=== PATIENT | male | born 1985 | race Caucasian/White ===

== ENCOUNTER 2018-02-24 18:38 | Emergency (ER) | payer OTHER ==
[2018-02-24 18:47] VITALS: BP 135/73
[2018-02-24] MEDS ORDERED: LIDOCAINE PATCH 5% TOP STA (19:08)
[2018-02-24] MEDS ORDERED: MELOXICAM 7.5 MG TABLET PO STA (19:08)
--- NOTE | 2018-02-24 19:14 | ED Physician Documentation ---
History of Present Illness - Stated complaint Stated Complaint: LT SIDE RIB PX - Chief complaint Chief Complaint: General - History obtained from History obtained from: Patient, Family - History of Present Illness Timing: How many days ago (5) Pain level max: 7 Pain level now: 2 Quality: aching pain, sharp with cough. Improved by: rest Worsened by: movement, palpation - Additonal information Additional information: L sided rib pain s/p diving for a softball a few days ago. Still having L rib pain Review of Systems Nose: denies: Rhinorrhea / runny nose, Congestion Throat: denies: Sore throat Cardiac: denies: Palpitations Respiratory: denies: Dyspnea, Hemoptysis, Wheezing Skin: denies: Rash Musculoskeletal: denies: Neck pain, Back pain Neurologic: denies: Headache PD PAST MEDICAL HISTORY - Past Medical History Past Medical History: No - Past Surgical History Past Surgical History: No - Present Medications Home Medications: Ambulatory Orders Medication Instructions Recorded Confirmed Docusate Sodium 100Mg Capsule 100 mg PO BID #30 capsule 06/03/14 [Colace] Nitroglycerin [Rectiv] 1 inch RC BID #1 oint...g. 06/03/14 Polyethylene Glycol 3350 [Miralax] 17 gm PO DAILY PRN #1 bottle 06/03/14 Lidocaine Patch 5% [Lidoderm Patch] 1 patch TOP DAILY PRN #10 patch 02/24/18 Meloxicam [Mobic] 15 mg PO DAILY PRN #20 tablet 02/24/18 - Allergies Allergies/Adverse Reactions: Allergies Allergy/AdvReac Type Severity Reaction Status Date / Time No Known Drug Allergies Allergy Verified 06/03/14 19:54 - Living Situation Living Situation: reports: With family Living Arrangement: reports: At home - Social History Does the pt smoke?: No Smoking Status: Never smoker Does the pt drink ETOH?: No Does the pt have substance abuse?: No - Immunizations Immunizations are current?: Yes PD ED PE NORMAL - Vitals Vital signs reviewed: Yes - General General: Alert and oriented X 3 - HEENT HEENT: Moist mucous membranes - Neck Neck: Supple, no meningeal sign - Cardiac Cardiac: RRR - Respiratory Respiratory: No respiratory distress, Clear bilaterally, Other (TTP over the L lateral ribs 4-5, no crepitus, no ecchymosis. ) - Derm Derm: Warm and dry - Neuro Neuro: Alert and oriented X 3 - Psych Psych: Normal mood, Normal affect Results - Vitals Vitals: Vital Signs - 24 hr 02/24/18 18:42 Temperature 37.1 C Heart Rate 83 Respiratory 16 Rate Blood Pressure 135/73 H O2 Saturation 98 Oxygen O2 Source Room air PD MEDICAL DECISION MAKING - ED course Complexity details: considered differential, d/w patient, d/w family ED course: Patient is a 32-year-old male who presents to the emergency department what appears to be a left-sided rib contusion versus minor fracture. No crepitus. No subcutaneous emphysema. No diminished breath sounds. We did discuss an x- ray but they declined this at this time and I think this is reasonable. We will continue supportive care and this should improve over the next week or so. Patient and family counseled regarding signs and symptoms for which I believe and urgent re-evaluation would be necessary. Patient with good understanding of and agreement to plan and is comfortable going home at this time This document was made in part using voice recognition software. While efforts are made to proofread this document, sound alike and grammatical errors may occur. Departure - Departure Disposition: 01 Home, Self Care Clinical Impression: Rib contusion Qualifiers: Encounter type: initial encounter Laterality: left Qualified Code(s): S20.212A - Contusion of left front wall of thorax, initial encounter Condition: Good Instructions: ED Contusion Vs Minor Fx Rib Follow-Up: RO AMAYA MD [Primary Care Provider] - Within 1 week Prescriptions: Lidocaine Patch 5% [Lidoderm Patch] 1 patch TOP DAILY PRN #10 patch PRN Reason: pain Meloxicam [Mobic] 15 mg PO DAILY PRN #20 tablet PRN Reason: pain Comments: This should improve over the next week. Return if you worsen. Discharge Date/Time: 02/24/18 19:20
== END 2018-02-24 19:20 | disposition home or self-care (01) ==
LOC: ED 18:38
DX: S20.212A Contusion of left front wall of thorax, initial encounter (principal); W22.8XXA Striking against or struck by other objects, initial encounter; Y93.64 Activity, baseball; Y92.320 Baseball field as the place of occurrence of the external cause
CPT/HCPCS: 99283; A9270

== ENCOUNTER 2018-06-12 19:09 | Emergency (ER) | payer OTHER ==
[2018-06-12 20:00] LABS: BASOPHILS % (AUTO) 0.5 %; EOSINOPHILS % (AUTO) 0.4 %; HGB - HEMOGLOBIN 15.1 g/dL (14.0-18.0); LYMPHOCYTES % (AUTO) 16.9 %; MEAN CORPUSCULAR HGB CONC 34.7 g/dL (32.0-36.0); MEAN CORPUSCULAR VOLUME 89.4 fL (80.0-94.0); MEAN PLATELET VOLUME 6.8 fL (7.4-11.4); MONOCYTES # (AUTO) 0.7 10^3/uL (0.0-1.0); MONOCYTES % (AUTO) 11.4 %; NEUTROPHILS # (AUTO) 4.2 10^3/uL (1.5-6.6); NEUTROPHILS % (AUTO) 70.8 %; PLT - PLATELET COUNT 245 10^3/uL (130-450); RED BLOOD COUNT 4.87 10^6/uL (4.70-6.10); WHITE BLOOD COUNT 5.9 x10^3/uL (4.8-10.8)
[2018-06-12 20:09] LABS: ALBUMIN 4.1 g/dL (3.2-5.5); ALBUMIN/GLOBULIN RATIO 1.1 (1.0-2.2); BILIRUBIN,TOTAL 0.9 mg/dL (0.2-1.0); CALCIUM 9.5 mg/dL (8.5-10.3); CREATININE 1.2 mg/dL (0.6-1.2); TOTAL PROTEIN 7.9 g/dL (6.7-8.2)
--- NOTE | 2018-06-12 20:37 | ED Physician Documentation ---
PD HPI ABD PAIN - Stated complaint Stated Complaint: DIARRHEA - Chief complaint Chief Complaint: Abd Pain - History obtained from History obtained from: Patient - History of Present Illness Timing - onset: Other (32-year-old gentleman, active duty in the [employer]. He just returned from [facility] [place]. The night after leaving [place] he developed crampy abdominal pain and green diarrhea with nausea but no vomiting and chills and fevers measured to 101. He has had this illness for 4 days now.) Review of Systems Ten Systems: 10 systems reviewed and negative Constitutional: reports: Fever, Chills, Fatigue GI: reports: Abdominal Pain, Nausea, Diarrhea. denies: Vomiting, Hematemesis : denies: Frequency PD PAST MEDICAL HISTORY - Past Surgical History Past Surgical History: No - Present Medications Home Medications: Ambulatory Orders Medication Instructions Recorded Confirmed Docusate Sodium 100Mg Capsule 100 mg PO BID #30 capsule 06/03/14 [Colace] Nitroglycerin [Rectiv] 1 inch RC BID #1 oint...g. 06/03/14 Polyethylene Glycol 3350 [Miralax] 17 gm PO DAILY PRN #1 bottle 06/03/14 Lidocaine Patch 5% [Lidoderm Patch] 1 patch TOP DAILY PRN #10 patch 02/24/18 Meloxicam [Mobic] 15 mg PO DAILY PRN #20 tablet 02/24/18 Ciprofloxacin HCl [Cipro] 500 mg PO BID #5 tablet 06/12/18 - Allergies Allergies/Adverse Reactions: Allergies Allergy/AdvReac Type Severity Reaction Status Date / Time No Known Drug Allergies Allergy Verified 06/03/14 19:54 - Social History Does the pt smoke?: No Smoking Status: Never smoker Does the pt drink ETOH?: No Does the pt have substance abuse?: No - Immunizations Immunizations are current?: Yes PD ED PE NORMAL - Vitals Vital signs reviewed: Yes - General General: Alert and oriented X 3, No acute distress - Abdomen Abdomen: Normal bowel sounds, Soft, Non tender - Derm Derm: Normal color, Warm and dry - Neuro Neuro: Alert and oriented X 3, Normal speech Results - Vitals Vitals: Vital Signs - 24 hr 06/12/18 19:14 Temperature 36.5 C Heart Rate 81 Respiratory 18 Rate Blood Pressure 129/87 H O2 Saturation 100 Oxygen O2 Source Room air - Labs Labs: Laboratory Tests 06/12/18 06/12/18 19:54 19:54 WBC 5.9 RBC 4.87 Hgb 15.1 Hct 43.5 MCV 89.4 MCH 31.0 MCHC 34.7 RDW 12.0 Plt Count 245 MPV 6.8 L Neut # (Auto) 4.2 Lymph # (Auto) 1.0 L Lyon # (Auto) 0.7 Eos # (Auto) 0.0 Baso # (Auto) 0.0 Absolute Nucleated RBC 0.01 Nucleated RBC % 0.1 Sodium 137 Potassium 4.2 Chloride 98 L Carbon Dioxide 30 Anion Gap 9.0 BUN 11 Creatinine 1.2 Estimated GFR (MDRD) 71 L Glucose 112 H Calcium 9.5 Total Bilirubin 0.9 AST 25 ALT 28 Alkaline Phosphatase 70 Total Protein 7.9 Albumin 4.1 Globulin 3.8 Albumin/Globulin Ratio 1.1 Lipase 39 PD MEDICAL DECISION MAKING - ED course ED course: 32-year-old gentleman with fevers and diarrhea is after traveling, we obtained stool and it seems reasonable to start him on Cipro pending the results given the circumstances. - Sepsis Event Vital Signs: Vital Signs - 24 hr 06/12/18 19:14 Temperature 36.5 C Heart Rate 81 Respiratory 18 Rate Blood Pressure 129/87 H O2 Saturation 100 Oxygen O2 Source Room air Departure - Departure Disposition: 01 Home, Self Care Clinical Impression: Diarrhea Qualifiers: Diarrhea type: infectious Qualified Code(s): A09 - Infectious gastroenteritis and colitis, unspecified Condition: Good Record reviewed to determine appropriate education?: Yes Instructions: ED Diarrhea Bacterial Prescriptions: Ciprofloxacin HCl [Cipro] 500 mg PO BID #5 tablet Comments: Ibuprofen as needed for pain, [facility]-up with [facility] on Sunday. Return if worsening. Drink plenty of fluids. Forms: Activity restrictions
[2018-06-12] MEDS ORDERED: CIPROFLOXACIN 250 MG TABLET PO STA (21:35)
[2018-06-12 21:43] VITALS: BP 128/88
== END 2018-06-12 21:42 | disposition home or self-care (01) ==
LOC: ED 19:09
DX: A09 Infectious gastroenteritis and colitis, unspecified (principal)
CPT/HCPCS: 36415; 80053; 83690; 85025; 87045; 87046; 87177; 87209; 87493; 99283; A9270

== ENCOUNTER 2020-02-06 09:16 | Emergency (ER) | payer OTHER ==
[2020-02-06 09:28] VITALS: BP 124/71
--- NOTE | 2020-02-06 10:03 | XRAY Report ---
Reason: Trauma Procedure Date: 02/06/2020 Accession Number: [id number] / [id number] Procedure: XR - Foot 3 View LT CPT Code: Final Report FULL RESULT: EXAM: LEFT FOOT RADIOGRAPHY EXAM DATE: 02/06/2020 09:52 AM. CLINICAL HISTORY: Trauma. COMPARISON: None. TECHNIQUE: 3 views. FINDINGS: Bones: No fracture or focal bony lesion. Joints: No evidence of dislocation. Soft Tissues: No unexpected soft tissue findings. IMPRESSION: No evidence of fracture or dislocation. RADIA
--- NOTE | 2020-02-06 10:14 | ED Physician Documentation ---
PD HPI LOWER EXT INJURY - Stated complaint Stated Complaint: LT FOOT PX - Chief complaint Chief Complaint: Ext Problem - Additional information Additional information: Patient comes emergency department complaining of pain in his left foot after landing a box jump yesterday during a workout. Patient states his foot felt a little "strange" upon landing, but that he just "walked it off" and did not notice any significant pain yesterday. However, today, the patient noticed that whenever he would put weight on his foot in certain ways, he noticed a sharp pain in the area of his left lateral foot, and was concerned that he may have fractured the area. Patient states he was not hurt in any other way. He did not fall during the incident. He states he is otherwise healthy and has no other complaints at this time. Review of Systems Ten Systems: 10 systems reviewed and negative Constitutional: reports: Reviewed and negative Eyes: reports: Reviewed and negative Ears: reports: Reviewed and negative Nose: reports: Reviewed and negative Throat: reports: Reviewed and negative Cardiac: reports: Reviewed and negative Respiratory: reports: Reviewed and negative GI: reports: Reviewed and negative : reports: Reviewed and negative Skin: reports: Reviewed and negative Musculoskeletal: reports: Extremity pain. denies: Extremity swelling Neurologic: reports: Reviewed and negative Psychiatric: reports: Reviewed and negative Endocrine: reports: Reviewed and negative Immunocompromised: reports: Reviewed and negative PD PAST MEDICAL HISTORY - Past Surgical History Past Surgical History: No - Present Medications Home Medications: Ambulatory Orders Medication Instructions Recorded Confirmed No Known Home Medications 02/06/20 02/06/20 - Allergies Allergies/Adverse Reactions: Allergies Allergy/AdvReac Type Severity Reaction Status Date / Time No Known Drug Allergies Allergy Verified 02/06/20 09:27 - Social History Does the pt smoke?: No Smoking Status: Never smoker Does the pt drink ETOH?: No Does the pt have substance abuse?: No - Immunizations Immunizations are current?: Yes PD ED PE NORMAL - Vitals Vital signs reviewed: Yes - General General: Alert and oriented X 3, No acute distress - HEENT HEENT: Atraumatic, EOMI, Moist mucous membranes - Neck Neck: Supple, no meningeal sign - Cardiac Cardiac: Strong equal pulses - Respiratory Respiratory: No respiratory distress - Derm Derm: Warm and dry - Extremities Extremities: No deformity, No edema, Other (Patient has moderate tenderness palpation over the lateral aspect of his foot at the proximal portion of the fifth metatarsal bone.This extends to the tarsometatarsal joint. There is no popping or clicking. No deformity or contusion. No tendernessThis extends to the tarsometatarsal joint. There is no popping or clicking. No deformity or contusion. No edema. Patient has full range of motion of his toes and his ankle.) - Neuro Neuro: Alert and oriented X 3, No motor deficit, No sensory deficit, Normal speech - Psych Psych: Normal mood, Normal affect Results - Vitals Vitals: Vital Signs - 24 hr 02/06/20 09:25 Temperature 36.4 C L Heart Rate 66 Respiratory 18 Rate Blood Pressure 124/71 O2 Saturation 97 Oxygen O2 Source Room air PD MEDICAL DECISION MAKING - ED course Complexity details: reviewed results, re-evaluated patient, considered differential, d/w patient ED course: Patient was worked up with an x-ray series of his left foot, which was found to be negative. I discussed with the patient home management of the symptoms, and that he should avoid any high impact or heavily weighted activities on that foot until it is feeling better. He may use crutches if he would like, but otherwise, may weight-bear as tolerated. We have discussed home management of the symptoms, as well as the usual indications for return. Departure - Departure Disposition: 01 Home, Self Care Clinical Impression: Sprain of foot, left Qualifiers: Encounter type: initial encounter Qualified Code(s): S93.602A - Unspecified sprain of left foot, initial encounter Condition: Good Instructions: ED Sprain Foot Comments: The x-ray series of your foot is normal. Most likely, you have strained or sprained to the area where you experiencing pain. The lateral aspect of the foot, particularly over the fifth metatarsal bone, is a very common location for stress fractures. However, your x-ray series has been viewed both by the emergency physician and the radiologist, and the radiologist final interpretation is that your bones and joints are normal. If you need to use crutches, you may, otherwise, you may bear weight, as tolerated. You should avoid any high impact or heavily weighted activities until your foot is feeling better. You will need to be the mold stripper of how you are feeling, and temper your activities based on that. If you develop worsening problems with the foot, please follow-up with your primary care physician. You may use ibuprofen and Tylenol, as well as ice, as needed for discomfort.
== END 2020-02-06 10:26 | disposition home or self-care (01) ==
LOC: ED 09:16
DX: S93.602A Unspecified sprain of left foot, initial encounter (principal); X50.1XXA Overexertion from prolonged static or awkward postures, initial encounter; Y93.B9 Activity, other involving muscle strengthening exercises
CPT/HCPCS: 99282; 99283